=== PATIENT | female | born 1990 | race Caucasian/White ===

== ENCOUNTER 2020-07-01 17:05 | Emergency (ER) | payer OTHER, SELFPAY ==
--- NOTE | 2020-07-01 17:10 | ED.DENTAL ---
HPI - Dental/Oral General Chief complaint: Dental/Oral Stated complaint: Tooth pain Time Seen by Provider: 07/01/20 17:11 Source: patient and RN notes reviewed History of Present Illness HPI Narrative: Patient is a 30-year-old female who presents the urgent care with complaints of left lower dental pain that started today when she woke up. Patient states that she now feels like she is getting some left lower facial swelling. Patient states that she has had issues with the same tooth in the past and it needs a retreat crown . Patient states that she has tried to get in with the dentist but they want approximately $6000 to retreat the tooth and she does not have that kind of money . Patient states that she has been taking ibuprofen today to help with the pain. Denies of any fever, nausea, vomiting, bad taste in the mouth. No other acute complaints. No acute distress noted. Patient aware of plan of care. Some parts of this dictation were generated by voice recognition software and may contain typographical and/or grammatical inaccuracies. Related Data Allergies Allergy/AdvReac Type Severity Reaction Status Date / Time No Known Allergies Allergy Verified 07/01/20 17:21 Review of Systems Review of Systems: Narrative: CONSTITUTIONAL: Denies fever, chills, or sweats. EYES: Denies visual changes, redness, or discharge. ENT: Denies rhinorrhea, congestion, sore throat, or otalgia. Reports of left lower dental pain CARDIOVASCULAR: Denies chest pain, palpitations, or edema. RESPIRATORY: Denies cough or dyspnea. GASTROINTESTINAL: Denies abdominal pain, nausea, vomiting, or diarrhea. GENITOURINARY: Denies dysuria or hematuria. SKIN: Denies rash or itching. MUSCULOSKELETAL: Denies back pain, joint pain, or myalgia. NEUROLOGIC: Denies headache, numbness, or weakness. All other systems reviewed are negative, except as documented in HPI. PMFSH Social History Social History Gender identity (if verbalized by the patient): Female Comments At the time of my signature, I reviewed and agree with the nursing past medical, surgical, social, and family history. There is no relevant family history pertinent to the patient complaint. Exam Narrative: Exam Narrative: GENERAL: This is a well-nourished, well-developed patient, in no apparent distress. HEAD: normocephalic, atraumatic. EYES: PERRL. Sclera clear/white. Vision is grossly intact. EARS: External ears normal NOSE: External nose normal with no obvious nasal discharge, nares without redness, no rhinorrhea. THROAT: Mucous membranes moist, posterior pharynx clear. NECK: Neck supple, non-tender without lymphadenopathy DENTAL: Avulsed canine to the left upper. Mild erythema and edema surrounding the tooth #19 without any notable abscess. Tooth has been crown in the past CARDIOVASCULAR: Regular rate and rhythm without murmurs, gallops, or rubs. RESPIRATORY: Clear to auscultation. Breath sounds equal bilaterally. No wheezes, rales, or rhonchi. SKIN: warm, intact with no suspicious lesions or rash, good texture and turgor. NEURO: awake, alert, and oriented to person, place and time. There were no obvious focal neurologic abnormalities. EXTREMITIES: No clubbing, cyanosis, or edema. Course Vital Signs Vital signs: Vital Signs Temperature 98.5 F 07/01/20 17:18 Pulse Rate 80 07/01/20 17:18 Respiratory Rate 18 07/01/20 17:18 Blood Pressure 116/69 07/01/20 17:18 Pulse Oximetry 99 07/01/20 17:18 Temperature 98.5 F 07/01/20 17:18 Pulse Rate 80 07/01/20 17:18 Respiratory Rate 18 07/01/20 17:18 Blood Pressure 116/69 07/01/20 17:18 Pulse Oximetry 99 07/01/20 17:18 Reviewed MDM - Dental/Oral MDM Narrative Medical decision making narrative: Advised the patient to complete antibiotic regimen as prescribed. Make sure you are eating and drinking with the medication. Use [id number] Prevention mouthwash twice a day. If you develop any increase in symptoms a
[2020-07-01 17:18] VITALS: BP 116/69; PULSE 80; RESP 18; TEMP 36.9; O2SAT 99
== END 2020-07-01 17:30 | disposition home or self-care (01) ==
PROVIDERS: Emergency Provider Nurse Practitioner Family; PCP Internal Medicine
DX: K04.7 Periapical abscess without sinus (principal)
CPT/HCPCS: 99213; G0463

== ENCOUNTER 2022-02-12 08:06 | Emergency (ER) | payer OTHER, SELFPAY ==
[2022-02-12 08:08] VITALS: BP 111/77; PULSE 85; RESP 14; TEMP 36.9; O2SAT 98
--- NOTE | 2022-02-12 08:09 | ED.URI ---
HPI - URI/Sore Throat General Chief Complaint: Upper Respiratory Infection Stated Complaint: sore throat fever Time Seen by Provider: 02/12/22 08:09 Source: patient and RN notes reviewed History of Present Illness HPI Narrative: patient is a 31-year-old female who presents to urgent care with complaints of a sore throat and a fever of 99 F this morning. Patient has not taken anything [id number] for her symptoms. Denies any other upper respiratory complaints. Denies any ill exposures. No other acute complaints. No acute distress noted. Patient aware of the plan of care. Some parts of this dictation were generated by voice recognition software and may contain typographical and/or grammatical inaccuracies. Related Data Allergies Allergy/AdvReac Type Severity Reaction Status Date / Time fentanyl Allergy Hives Verified 02/12/22 08:16 Review of Systems Review of Systems: CONSTITUTIONAL: Reports of fever EYES: Denies visual changes, redness, or discharge. ENT: Denies rhinorrhea, congestion, otalgia. Reports of sore throat CARDIOVASCULAR: Denies chest pain, palpitations, or edema. RESPIRATORY: Denies cough or dyspnea. GASTROINTESTINAL: Denies abdominal pain, nausea, vomiting, or diarrhea. GENITOURINARY: Denies dysuria or hematuria. SKIN: Denies rash or itching. MUSCULOSKELETAL: Denies back pain, joint pain, or myalgia. NEUROLOGIC: Denies headache, numbness, or weakness. All other systems reviewed are negative, except as documented in HPI. [facility] Social History Social History Gender identity (if verbalized by the patient): Female Comments At the time of my signature, I reviewed and agree with the nursing past medical, surgical, social, and family history. There is no relevant family history pertinent to the patient complaint. Exam Narrative: GENERAL: This is a well-nourished, well-developed patient, in no apparent distress. HEAD: normocephalic, atraumatic. EYES: PERRL. Sclera clear/white. Vision is grossly intact. EARS: External ears normal, auditory canals clear and without drainage, TMs normal without perforation. Hearing grossly intact. NOSE: External nose normal with no obvious nasal discharge, nares without redness, no rhinorrhea. THROAT: Mucous membranes moist, mild erythema to posterior pharynx without exudate or ulceration. Moderate postnasal drainage. NECK: Neck supple, non-tender without lymphadenopathy CARDIOVASCULAR: Regular rate and rhythm without murmurs, gallops, or rubs. RESPIRATORY: Clear to auscultation. Breath sounds equal bilaterally. No wheezes, rales, or rhonchi. SKIN: warm, intact with no suspicious lesions or rash, good texture and turgor. NEURO: awake, alert, and oriented to person, place and time. There were no obvious focal neurologic abnormalities. EXTREMITIES: No clubbing, cyanosis, or edema. Course Course Level of Care: Express Care Visit Vital Signs Vital signs: Vital Signs Temperature 98.4 F 02/12/22 08:08 Pulse Rate 85 02/12/22 08:08 Respiratory Rate 14 02/12/22 08:08 Blood Pressure 111/77 02/12/22 08:08 Pulse Oximetry 98 02/12/22 08:08 Oxygen Delivery Room Air 02/12/22 08:08 Temperature 98.4 F 02/12/22 08:08 Pulse Rate 85 02/12/22 08:08 Respiratory Rate 14 02/12/22 08:08 Blood Pressure 111/77 02/12/22 08:08 Pulse Oximetry 98 02/12/22 08:08 Oxygen Delivery Room Air 02/12/22 08:08 Reviewed MDM - URI/Sore Throat MDM Narrative Medical decision making narrative: reviewed lab results with the patient. she is aware that strep swab was negative. Educated patient on culture we will call within 72 hours if culture is positive antibiotics are necessary. Advised patient to take a daily antihistamine such as Claritin or Zyrtec in conjunction with Tylenol/ ibuprofen. Increase water intake and rest. Use a humidifier at night. Follow up with her PCP within 2-5 days or for worsening symptoms or failure to improve. Differential
== END 2022-02-12 08:38 | disposition home or self-care (01) ==
PROVIDERS: Emergency Provider Nurse Practitioner Family
DX: J02.9 Acute pharyngitis, unspecified (principal)
CPT/HCPCS: 87081; 87880; 99213; G0463